=== PATIENT | male | born 1960 | race Caucasian/White ===

== ENCOUNTER 2017-08-31 17:30 | Emergency (ER) | payer MEDICAID, MEDICARE ==
[~2017-08-31] VITALS: Ht 177.8 cm; Wt 83.9 kg
[~2017-08-31 17:30] MED LIST: ALPR1T PO; AMIT100T2 PO; CYCL-97 PO; CYCL10TA9; ESCI20TA2 PO; FURO40TA4 PO; HYDR-3720 PO; HYDROCODONE; LEXAPRO; MIRAPEX; NAPR220T76 PO; NAPR250T34; POTA10CA43 PO; PRAM0.5T4; PRAM1TAB3 PO; XANAX; [UNRECOGNIZED DRUG - OTHER]
--- OUTSIDE RECORDS SUMMARY | 2017-08-31 17:35 | XMS REPORT ---
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 Encounters No authorized problems tracked for encounter diagnoses are available for this visit. Medications No home medications recorded for this patient visit Allergies, adverse reactions, alerts No allergy information is available for this patient. Immunizations No immunizations recorded for this patient visit Relevant diagnostic tests and/or laboratory data RESULTS CBC [id number]:00 Result Normal Range Units WBC 5.86 4.60-10.20 x 103/uL Manual Diff Not Indicated RBC 4.69 4.04-6.13 x 106/uL Hemoglobin 14.0 12.2-18.1 g/dl Hematocrit 42.2 37.7-53.7 % MCV 90.0 80.0-97.0 FL MCH 29.9 27.0-31.2 pg MCHC 33.2 31.8-35.4 g/dl RDW 13.3 11.6-14.8 % Platelets 250 142-424 x 103/uL MPV L 9.1 9.4-12.4 FL Neutrophil % 57.2 37-80 % Neutrophils 3.35 2.0-6.9 x 103/uL Lymphocyte % 27.3 10-50 % Lymphocytes 1.60 0.6-3.4 x 103/uL Monocyte % H 12.8 0-12 % Monocytes 0.75 0.0-1.0 x 103/uL Eosinophil % 2.4 0-7 % Eosinophils 0.14 0-0.7 x 103/uL Basophil % 0.3 0-2 % Basophils 0.02 0.0-0.1 x 103/uL Hematology Group [id number]:48:00 Result Normal Range Units Sed Rate 8 5-20 MM/hr. Chemistry Group [id number]:48:00 Result Normal Range Units Glucose H 117 65-110 mg/dl BUN 9 7-21 mg/dl Creatinine 0.8 0.7-1.5 mg/dl Sodium 137 137-145 mmol/L Potassium 4.4 3.6-5.0 mmol/L Chloride 104 98-107 mmol/L CO2 28 22-30 mmol/L BUN/Creatinine Ratio 10.4 7-25 Ratio Calcium 8.8 8.4-10.2 mg/dl Protein Total 6.9 6.3-8.2 g/dl Albumin 3.8 3.5-5.0 g/dl A/G Ratio 1.2 1.2-2.2 Ratio AST 22 15-46 U/L ALT 24 7-56 U/L ALP 103 38-126 U/L Bilirubin Total 0.4 0.2-1.3 mg/dl Osmolality 265 261-280 mOsm/kg Globulin 3.1 2.4-3.5 g/dL Magnesium 2.1 1.7-2.2 mg/dl Phosphorus H 4.8 2.5-4.5 mg/dl Uric Acid 5.1 2.5-8.0 mg/dl Reference Lab Group [id number]:48:00 Result Normal Range Units Rheumatoid Factor 6 <14 IU/mL TEST PERFORMED AT: [facility] [address] [address] RUSLAN LARES DO,MPH History of procedures Procedure Code Code Type Description Date Performed Performing Physician 43971 CPT-4 COMPLETE CBC W/AUTO DIFF WBC 10-22-2014 MOHINI PENA 80401 CPT-4 COMPREHEN METABOLIC PANEL 10-22-2014 MOHINI PENA 65996 CPT-4 RBC SED RATE NONAUTOMATED 10-22-2014 MOHINI PENA 01469 CPT-4 ASSAY OF MAGNESIUM 10-22-2014 MOHINI PENA 43956 CPT-4 ASSAY OF PHOSPHORUS 10-22-2014 MOHINI PENA 78505 CPT-4 RHEUMATOID FACTOR QUANT 10-22-2014 MOHINI PENA 28053 CPT-4 ASSAY OF BLOOD/URIC ACID 10-22-2014 MOHINI PENA 08034 CPT-4 X-RAY EXAM L-2 SPINE 4/>VWS 10-22-2014 MOHINI PENA 66704 CPT-4 ROUTINE VENIPUNCTURE 10-22-2014 MOHINI PENA Functional status No functional or cognitive status observations are available for this visit. Vital signs No authorized vital signs are available for this visit. Social history No Social History or smoking status observations were recorded for this visit. ( Unknown if ever smoked.) Treatment Plan No treatment plan text is available for this visit. Hospital discharge instructions No discharge instruction text is available for this visit.
--- OUTSIDE RECORDS SUMMARY | 2017-08-31 17:35 | XMS REPORT ---
Author Author [facility] Medical Staff Organization [facility] Address [address] [place], [place] [address] Phone [phone] Care Team Providers Care Data Systems Analyst Name Role Phone BECKY OWEN, MOHINI PP [phone] Summary purpose CCDA Sent to [facility] Chief Complaint and Reason for Visit Admit Diagnosis 1 CERVICALGIA Problem list No authorized problems tracked for continuity of care are available for this visit. Encounters No authorized problems tracked for encounter diagnoses are available for this visit. Medications No home medications recorded for this patient visit Allergies, adverse reactions, alerts No allergy information is available for this patient. Immunizations No immunizations recorded for this patient visit Relevant diagnostic tests and/or laboratory data No authorized results are available for this patient visit History of procedures Procedure Code Code Type Description Date Performed Performing Physician 57870 CPT-4 X-RAY EYE FOR FOREIGN BODY 01-15-2015 MOHINI PENA 36290 CPT-4 MRI NECK SPINE W/O DYE 01-15-2015 MOHINI PENA Functional status No functional or [...]
--- OUTSIDE RECORDS SUMMARY | 2017-08-31 17:36 | XMS REPORT ---
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
--- OUTSIDE RECORDS SUMMARY | 2017-08-31 17:36 | XMS REPORT | Continuity of Care Document ---
Author Author [facility] Address Unknown Phone Unavailable Allergies Active Description Code Type Severity Reaction Onset Reported/Identified Relationship to Patient Clinical Status Yes No known allergies Drug N/A N/A Medications There is no data. 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 SITE/SITE NEC 10/22/2014 D E000.9 EXT CAUSE STATUS NOS 10/22/2014 D E030 ACTIVITY NOS 10/22/2014 D E8[address] NOS 10/22/2014 D E881.0 FALL FROM LADDER 01/15/2015 MOHINI PENA MD 723.1 CERVICALGIA 01/15/2015 MOHINI PENA MD 724.2 LUMBAGO 01/15/2015 MOHINI PENA MD V82.89 SCREEN OTHR SPEC CONDIT Procedures Code [place] [address] [employer]ITOX 08/21/2014 NEUROLOGI FLEX SEVERINO 08/21/2014 78689 ROUTINE VENIPUNCTURE MOHINI PENA MD 10/22/2014 29239 X-RAY EXAM OF LOWER SPINE MOHINI PENA MD 10/22/2014 73169 COMPREHEN METABOLIC PANEL MOHINI PENA MD 10/22/2014 83902 ASSAY OF MAGNESIUM MOHINI PENA MD 10/22/2014 37335 ASSAY OF PHOSPHORUS MOHINI PENA MD 10/22/2014 62072 ASSAY OF BLOOD/URIC ACID BECKY OWEN, MOHINI Scott 10/22/2014 51072 COMPLETE CBC W/AUTO DIFF WBC BECKY OWEN, MOHINI Scott 10/22/2014 39880 RBC SED RATE, NONAUTOMATED BECKY OWEN, MOHINI Scott 10/22/2014 96037 RHEUMATOID FACTOR, QUANT BECKY OWEN, MOHINI Scott 10/22/2014 29989 X-RAY EYE FOR FOREIGN BODY BECKY OWEN, MOHINI Scott 01/15/2015 22647 MRI NECK SPINE W/O VALERI PENA MD, MOHINI Scott 01/15/2015 Results There is no data. Encounters ACCT No. Visit Date/Time Discharge Status Pt. Type Provider Facility Loc./Unit Complaint [id number] 08/21/2014 10:00:00 08/21/2014 23:59:59 CLS Outpatient OLE OWEN, AMANDA Chen [id number] 01/15/2015 13:54:00 01/15/2015 13:54:00 DIS Outpatient BECKY OWEN, MOHINI [facility] OTHER [id number] 10/22/2014 15:29:00 Document Registration [id number] 06/28/2017 21:05:00 06/28/2017 22:02:00 DIS Emergency SENTHIL AMARAL [facility] MARY ED back pain
[2017-08-31] MEDS ORDERED: KETOROLAC 30 MG/ML VIAL IM ONE (18:00)
[2017-08-31] MEDS ORDERED: ONDANSETRON 4 MG (ZOFRAN) ORAL DISSOLVE TAB ONE (18:01)
--- NOTE | 2017-08-31 18:01 | ED Cough/URI ---
General Chief Complaint: Cough/Cold/Flu Symptoms Stated Complaint: COUGH,FEVER,BODY ACHES Nursing Triage Note: PT STATES FLU LIKE S/S FOR THE PAST THREE DAYS. NO TYLENOL OR IBUPROFEN TODAY, FEVER 101.8 AT TRIAGE. GENERALIZED BODY ACHES WITH LOW BACK PAIN ALSO. Source: patient Exam Limitations: no limitations History of Present Illness Time seen by provider: 17:50 Initial Comments Patient resists with 3 days of body aches chills backache that is progressively gotten worse. Fever in the ER today is 101.8 per nursing. Patient does not have a thermometer but is been chilling and sweating. He said his about a week and a half ago at the same thing and she still sick with it. No is been diagnosed with influenza. He denies getting of influenza vaccine. He does not have a history of asthma or COPD. He does not smoke nor did he ever. He has no shortness of breath but he does have a productive cough. He denies any wheezing. He has nasal congestion with discharge. No headaches. He has a history of back surgeries and has used hydrocodone and Percocet in the past for those. He does not have any now. He has not taken any Tylenol or Motrin since this started. Allergies and Home Medications Allergies Coded Allergies: No Known Drug Allergies (Unverified , 11/25/08) Home Medications Alprazolam 1 Mg Tablet, 1 TAB PO QID, (Reported) Amitriptyline Hcl 100 Mg Tablet, 1 EACH PO HS, (Reported) Cyclobenzaprine Hcl 10 Mg Tablet, 1 TAB PO BID, (Reported) Escitalopram Oxalate 20 Mg Tablet, 1 EACH PO DAILY, (Reported) Furosemide 40 Mg Tablet, 1 EACH PO DAILY, #10 Ref 0 FOR SWELLING Prescribed by: ELI GEORGE on 11/28/09141 Hydrocodone Bit/Acetaminophen 1 Ea Tab, 1-2 EA PO Q 4 - 6 HRS PRN, (Reported) Naproxen Sodium 220 Mg Tablet, 220 MG PO BID PRN, (Reported) Potassium Chloride 10 Meq Capsule.sa, 1 EACH PO DAILY WITH FOOD, #10 Ref 0 FOR POTASSIUM SUPPLEMENT Prescribed by: ELI GEORGE on 11/28/09141 Pramipexole Di-Hcl 1 Mg Tablet, 1 MG PO PC DINNER, (Reported) Constitutional: chills, diaphoresis, fever, malaise EENTM: No ear discharge, No hearing loss, No ear pain, No blurred vision, No double vision, No eye pain Respiratory: cough, phlegm, No short of breath, No wheezing Cardiovascular: No chest pain, No edema, No syncope, No vascular heart diseas Gastrointestinal: No abdominal pain, No nausea, No vomiting Genitourinary: No discharge, No dysuria Skin: No pruritus, No rash, No other Past Vwqqsif-Ywwplu-Ktbewd Hx Patient Social History Alcohol Use: Denies Use Recreational Drug Use: No Smoking Status: Never a Smoker Recent Foreign Travel: No Contact w/Someone Who Travel: No Recent Infectious Disease Expo: No Recent Hopitalizations: No Seasonal Allergies Seasonal Allergies: No Surgeries History of Surgeries: Yes (4 NECK, RT KNEE, RT ELBOW) Surgeries: Gallbladder, Orthopedic Respiratory History of Respiratory Disorde: No Cardiovascular History of Cardiac Disorders: No Neurological History of Neurological Disord: No Genitourinary History of Genitourinary Disor: No Gastrointestinal History of Gastrointestinal Di: No Musculoskeletal History of Musculoskeletal Dis: Yes Musculoskeletal Disorders: Chronic Back Pain Endocrine History of Endocrine Disorders: No HEENT History of HEENT Disorders: No Cancer History of Cancer: No Psychosocial History of Psychiatric Problem: No Integumentary History of Skin or Integumenta: No Physical Exam Vital Signs Vital Sign - Last 12Hours 08/31/17 17:44 Temp 101.8 Pulse 87 Resp 22 B/P (MAP) 137/86 (103) Pulse Ox 98 O2 Delivery Room Air Capillary Refill : Less Than 3 Seconds General Appearance: WD/WN, mild distress Eyes: Bilateral Eye Normal Inspection, Bilateral Eye PERRL, Bilateral Eye EOMI HEENT: PERRL/EOMI, pharynx normal, other (bilateral TMs with clear effusion and retraction) Neck: non-tender, supple, normal inspection Respiratory: chest non-tender, lungs clear, normal breath sounds, no respiratory distress, no accessory muscle use Cardiovascular: normal peripheral pulses, regular rate, rhythm, no edema Gastrointestinal: non tender, soft Extremities: non-tender, normal inspection, normal capillary refill Neurologic/Psychiatric: alert, oriented x 3 Skin: normal color, warm/dry Progress/Results/Core Measures Suspected Sepsis Recent Fever Within 48 Hours: No Infection Criteria Present: Suspected New Infection New/Unexplained Altered Menta: No Sepsis Screen: Possible Sepsis Risk Sepsis Diagnosis: SIRS Temperature:101.8 Pulse: 87 Respiratory Rate: 22 Blood Pressure 137 /86 Mean: 103 Results/Orders Micro Results Microbiology 08/31/17 Influenza Types A,B Antigen (JOSE ARMANDO) - Final, Complete My Orders Orders - ZACHERYNELLY Influenza A And B Antigens (08/31/17 17:55) Ketorolac Injection (Toradol Injection) (08/31/17 18:00) Ondansetron Oral Dissolve Tab (Zofran (08/31/17 18:15) Ondansetron Oral Dissolve Tab (Zofran (08/31/17 18:01) Medications Given in ED Current Medications Medications Dose Ordered Sig/Moy Route Start Time Stop Time Status Last Admin Dose Admin Ketorolac Tromethamine 15 mg ONCE ONCE IM 08/31/17 18:00 08/31/17 18:01 DC 08/31/17 18:04 15 MG Ondansetron HCl 4 mg ONCE ONCE PO 08/31/17 18:15 08/31/17 18:16 DC 08/31/17 18:03 4 MG Vital Signs/I&O Vital Sign - Last 12Hours 08/31/17 08/31/17 17:44 18:04 Temp 101.8 101.8 Pulse 87 Resp 22 B/P (MAP) 137/86 (103) Pulse Ox 98 O2 Delivery Room Air Capillary Refill : Less Than 3 Seconds Blood Pressure Mean: 103 Departure Impression Impression: Primary Impression: Bilateral otitis media with effusion Additional Impression: Influenza Disposition: 01 HOME, SELF-CARE Condition: Stable Departure-Patient Inst. Decision time for Depature: 18:25 Referrals: NO,LOCAL PHYSICIAN (PCP/Family) Primary Care Physician Patient Instructions: Flu, Adult (DC) Add. Discharge Instructions: If you have fever, chills, body aches or pain take 1000 g Tylenol every 8 hours and you may also take 800 mg of ibuprofen every 8 hours. Use vaporizers like Vicks and Mentholatum as well as humidifiers. Get some sleep. Push lots and lots of fluids by mouth. Wash her hands and use hand assistant engineer's and wear a mask when out in public. All discharge instructions reviewed with patient and/ or family. Voiced understanding. For your otitis media with effusion you just need to get some Flonase or Nasacort which is a nasal steroid spray and apply 1 puff each nostril daily for the next 2 weeks to help the middle ears open up and drain. If you are getting headaches then this is probably the culprit. NELLY BINGHAM Aug 31, 2017 18:01
[2017-08-31] MEDS ORDERED: ONDANSETRON 4 MG (ZOFRAN) ORAL DISSOLVE TAB PO ONE (18:15)
[2017-08-31 18:36] VITALS: BP 138/81
== END 2017-08-31 18:36 | disposition home or self-care (01) ==
LOC: EDUNIT# 17:30 → ER 17:32
DX: H65.93 Unspecified nonsuppurative otitis media, bilateral (principal); J11.1 Influenza due to unidentified influenza virus with other respiratory manifestations
CPT/HCPCS: 87804; 96372; 99284